=== PATIENT | male | born 1965 | race Caucasian/White ===

== ENCOUNTER 2021-04-26 14:02 | Observation (INO) | payer BC ==
[2021-04-26] MEDS ORDERED: NITROGLYCERIN OINT 1 INCH/GM PACKET TOPICAL STA (15:08)
[2021-04-26] MEDS ORDERED: ASPIRIN 81 MG PO STA (15:08)
--- NOTE | 2021-04-26 15:11 | ED ---
General Adult HPI - General Chief complaint: Chest Pain Stated complaint: Chest Pain Time Seen by Provider: 04/26/21 14:48 Source: patient, RN notes reviewed Mode of arrival: wheelchair Limitations: no limitations - History of Present Illness Initial comments: Patient is a pleasant 55-year-old male presenting to the emergency Department with complaints of chest discomfort. Patient had an episode a week ago that resolved. Patient had some symptoms yesterday that improved at nighttime and return again this morning. Symptoms have been steady today. Discomfort feels like tightness and is rated 5/10. No radiation. No associated dyspnea, nausea, or diaphoresis. No history of similar symptoms prior to last week. Symptoms are not necessarily exertional. No worsening symptoms with position changes or deep breaths. - Related Data Home Medications Medication Instructions Recorded Confirmed Aspirin EC [Ecotrin] 325 mg PO ONCE PRN 04/26/21 04/26/21 Cetirizine HCl [Zyrtec] 10 mg PO DAILY 04/26/21 04/26/21 Omeprazole 20 mg PO DAILY 04/26/21 04/26/21 amLODIPine [Norvasc] 5 mg PO DAILY 04/26/21 04/26/21 Allergies Allergy/AdvReac Type Severity Reaction Status Date / Time No Known Allergies Allergy Verified 04/26/21 16:02 Review of Systems ROS Statement: Those systems with pertinent positive or pertinent negative responses have been documented in the HPI. ROS Other: All systems not noted in ROS Statement are negative. Constitutional: Denies: fever Eyes: Denies: eye pain ENT: Denies: ear pain Respiratory: Denies: cough, dyspnea Cardiovascular: Reports: as per HPI, chest pain Endocrine: Denies: fatigue Gastrointestinal: Denies: abdominal pain Genitourinary: Denies: dysuria Musculoskeletal: Denies: back pain Skin: Denies: rash Neurological: Denies: weakness Past Medical History Past Medical History: Hyperlipidemia, Hypertension Additional Past Medical History / Comment(s): covid 03/01 History of Any Multi-Drug Resistant Organisms: None Reported Past Surgical History: Hernia Repair Past Psychological History: No Psychological Hx Reported Smoking Status: Never smoker Past Alcohol Use History: Occasional Past Drug Use History: Marijuana General Exam Limitations: no limitations General appearance: alert, in no apparent distress Head exam: Present: normocephalic Eye exam: Present: normal appearance Neck exam: Present: normal inspection Respiratory exam: Present: normal lung sounds bilaterally. Absent: chest wall tenderness Cardiovascular Exam: Present: regular rate, normal rhythm Expanded Peripheral pulses: 2+: Radial (R), Radial (L), Posterior Tibialis (R), Posterior Tibialis (L) GI/Abdominal exam: Present: soft. Absent: tenderness Extremities exam: Present: normal inspection. Absent: pedal edema, calf tenderness Neurological exam: Present: alert Psychiatric exam: Present: normal affect, normal mood Skin exam: Present: normal color Course Vital Signs 04/26/21 04/26/21 14:06 14:56 Temperature 97.9 F Pulse Rate 94 Respiratory 20 16 Rate Blood Pressure 190/107 O2 Sat by Pulse 98 Oximetry EKG Findings - EKG Comments: EKG Findings:: No sinus rhythm with a rate of 81. MT 154. QRS 76. QT 368. QT C 427. Normal axis. Normal QRS. No acute ST change. Medical Decision Making - Medical Decision Making Patient reevaluated. Patient and family updated. Dr. Meehan has been paged for admission, covering for hospital call. Repeat chest x-ray will also be ordered tomorrow. Ultrasound gallbladder will be ordered. - Lab Data Result diagrams: 04/26/21 15:06 04/26/21 15:06 Lab Results 04/26/21 04/26/21 04/26/21 Range/Units 15:06 15:06 15:06 WBC 4.1 (3.8-10.6) k/uL RBC 5.02 (4.30-5.90) m/uL Hgb 17.1 (13.0-17.5) gm/dL Hct 48.0 (39.0-53.0) % MCV 95.6 (80.0-100.0) fL MCH 34.0 (25.0-35.0) pg MCHC 35.6 (31.0-37.0) g/dL RDW 12.6 (11.5-15.5) % Plt Count 189 (150-450) k/uL MPV 8.3 Neutrophils % 51 % Lymphocytes % 34 % Monocytes % 8 % Eosinophils % 3 % Basophils % 2 % Neutrophils # 2.1 (1.3-7.7) k/uL Lymphocytes # 1.4 (1.0-4.8) k/uL Monocytes # 0.3 (0-1.0) k/uL Eosinophils # 0.1 (0-0.7) k/uL Basophils # 0.1 (0-0.2) k/uL PT 11.8 (9.0-12.0) sec INR 1.1 (<1.2) APTT 44.3 H (22.0-30.0) sec D-Dimer 0.43 (<0.60) mg/L FEU Sodium 138 (137-145) mmol/L Potassium 4.4 (3.5-5.1) mmol/L Chloride 97 L (98-107) mmol/L Carbon Dioxide 29 (22-30) mmol/L Anion Gap 12 mmol/L BUN 12 (9-20) mg/dL Creatinine 0.83 (0.66-1.25) mg/dL Est GFR (CKD-EPI)AfAm >90 (>60 ml/min/1.73 sqM) Est GFR (CKD-EPI)NonAf >90 (>60 ml/min/1.73 sqM) Glucose 93 (74-99) mg/dL Calcium 10.0 (8.4-10.2) mg/dL Magnesium 1.7 (1.6-2.3) mg/dL Total Bilirubin 1.4 H (0.2-1.3) mg/dL AST 66 H (17-59) U/L ALT 72 H (4-49) U/L Alkaline Phosphatase 79 (38-126) U/L Troponin I (0.000-0.034) ng/mL Total Protein 8.5 H (6.3-8.2) g/dL Albumin 5.0 (3.5-5.0) g/dL 04/26/21 Range/Units 15:06 WBC (3.8-10.6) k/uL RBC (4.30-5.90) m/uL Hgb (13.0-17.5) gm/dL Hct (39.0-53.0) % MCV (80.0-100.0) fL MCH (25.0-35.0) pg MCHC (31.0-37.0) g/dL RDW (11.5-15.5) % Plt Count (150-450) k/uL MPV Neutrophils % % Lymphocytes % % Monocytes % % Eosinophils % % Basophils % % Neutrophils # (1.3-7.7) k/uL Lymphocytes # (1.0-4.8) k/uL Monocytes # (0-1.0) k/uL Eosinophils # (0-0.7) k/uL Basophils # (0-0.2) k/uL PT (9.0-12.0) sec INR (<1.2) APTT (22.0-30.0) sec D-Dimer (<0.60) mg/L FEU Sodium (137-145) mmol/L Potassium (3.5-5.1) mmol/L Chloride (98-107) mmol/L Carbon Dioxide (22-30) mmol/L Anion Gap mmol/L BUN (9-20) mg/dL Creatinine (0.66-1.25) mg/dL Est GFR (CKD-EPI)AfAm (>60 ml/min/1.73 sqM) Est GFR (CKD-EPI)NonAf (>60 ml/min/1.73 sqM) Glucose (74-99) mg/dL Calcium (8.4-10.2) mg/dL Magnesium (1.6-2.3) mg/dL Total Bilirubin (0.2-1.3) mg/dL AST (17-59) U/L ALT (4-49) U/L Alkaline Phosphatase (38-126) U/L Troponin I <0.012 (0.000-0.034) ng/mL Total Protein (6.3-8.2) g/dL Albumin (3.5-5.0) g/dL - Radiology Data Radiology results: image reviewed (Chest x-ray shows possible lower lobe densities on lateral view.) Disposition Clinical Impression: Chest pain Disposition: ADMITTED IP TO THIS [facility] Is patient prescribed a controlled substance at d/c from ED?: No Referrals: Parrish Mcneill DO [Primary Care Provider] - 1-2 days Decision Time: 16:13
[2021-04-26 15:21] LABS: Basophils # (A) 0.1 k/uL (0-0.2); Basophils % (A) 2 %; Eosinophils # (A) 0.1 k/uL (0-0.7); Eosinophils % (A) 3 %; HGB 17.1 gm/dL (13.0-17.5); Lymphocytes # (A) 1.4 k/uL (1.0-4.8); Lymphocytes % (A) 34 %; MCHC 35.6 g/dL (31.0-37.0); MCV 95.6 fL (80.0-100.0); Mean Platelet Volume 8.3; Monocytes # (A) 0.3 k/uL (0-1.0); Monocytes % (A) 8 %; Neutrophils # (A) 2.1 k/uL (1.3-7.7); Neutrophils % (A) 51 %; Platelet Count 189 k/uL (150-450); RBC 5.02 m/uL (4.30-5.90); RDW 12.6 % (11.5-15.5); WBC 4.1 k/uL (3.8-10.6)
--- NOTE | 2021-04-26 15:26 | XR ---
EXAMINATION TYPE: XR chest 2V DATE OF EXAM: 04/26/2021 COMPARISON: NONE HISTORY: Chest pain TECHNIQUE: Frontal and lateral views of the chest are obtained. FINDINGS: There are vague nodular densities seen in the lateral view posteriorly measuring up to 1.[address] can be performed for further evaluation if clinically warranted. Cardiac silhouette is not enlarged. IMPRESSION: Vague possible nodular densities in the posterior lungs on lateral view only may be further evaluated with CT chest if clinically warranted.
[2021-04-26 15:30] LABS: ALT 72 U/L (4-49); AST 66 U/L (17-59); African American GFR (CKD) >90 (>60 ml/min/1.73 sqM); Alkaline Phosphatase 79 U/L (38-126); Anion Gap 12 mmol/L; Blood Urea Nitrogen 12 mg/dL (9-20); Carbon Dioxide 29 mmol/L (22-30); Chloride 97 mmol/L (98-107); Glucose 93 mg/dL (74-99); Magnesium 1.7 mg/dL (1.6-2.3); Non-African American GFR(CKD) >90 (>60 ml/min/1.73 sqM); Potassium 4.4 mmol/L (3.5-5.1); Sodium 138 mmol/L (137-145); Total Bilirubin 1.4 mg/dL (0.2-1.3); Total Protein 8.5 g/dL (6.3-8.2)
[2021-04-26 15:46] LABS: D-Dimer 0.43 mg/L FEU (<0.60); INR 1.1 (<1.2); Partial Thromboplastin Time 44.3 sec (22.0-30.0); Prothrombin Time 11.8 sec (9.0-12.0)
[2021-04-26] MEDS ORDERED: NITROGLYCERIN SL TABS 0.4 MG TAB SUBLINGUAL PRN (16:14)
[2021-04-26] MEDS: NITROGLYCERIN OINT 1 INCH/GM PACKET TOPICAL SCH ×2 (16:48→19:32)
--- NOTE | 2021-04-26 16:57 | US ---
EXAMINATION TYPE: US gallbladder DATE OF EXAM: 04/26/2021 COMPARISON: NONE CLINICAL HISTORY: pain. Pain right upper quadrant. EXAM MEASUREMENTS: Liver Length: 12.8 cm Gallbladder Wall: .2 cm CBD: .4 cm Right Kidney: 10.1 x 5.3 x 4.2 cm Pancreas: Obscured by bowel gas Liver: Increased attenuation Gallbladder: No stones seen Evidence for sonographic Gómez's sign: No CBD: wnl Right Kidney: No hydronephrosis or masses seen Visualized portion of pancreas is slightly heterogeneous. Portions obscured by overlying bowel gas an d body habitus. Visualized portion of liver heterogeneously hyperechoic. Evaluation for focal masses suboptimal due to the heterogeneity. No ductal dilatation or surrounding ascites. Finding could be pr oduct of diffuse fatty infiltration and/or underlying hepatocellular disease. Gallbladder identified without shadowing mobile gallstones. Limited images of right kidney show no gross hydronephrosis. IMPRESSION: Suboptimal study but no shadowing mobile gallstones or ultrasound evidence for acute chol ecystitis.
--- NOTE | 2021-04-26 21:43 | P.HPIM ---
History of Present Illness H&P Date: 04/26/21 Chief Complaint: Chest Pain Patient is a 55-year-old male with a known history of hypertension, hyperlipidemia, COVID-19 infection in February 2021 between his 2 Covid vaccine do ses and occasional marijuana use, reflux symptoms presents to ER with complaints of chest discomfort. Patient states that he had left lateral lower chest pain about a week ago which was resolved by itself. Yesterday whole day he did have dull aching chest pressure and resolved by evening. Since last midnight patient has been having symptoms again which is constant aching pain. No associated na usea vomiting. No radiation of the pain. Sometimes worsens with deep breathing. No fever no chills. No cough or sputum production. Patient was tested positive for COVID-19 infection in February 2021 which resolved without any complications. No nausea vomiting or abdominal pain or diarrhea. No prior history of cardiac disease. Patient does smoke marijuana occasionally. Denies any exertional dyspnea. Patient was able to play golf over the weekend. Laboratory data showed WBC 4.1 Laboratory data showed WBC 4.1, hemoglobin 17.1 and platelets 189 D-dimer level is 0.43 Sodium 138 potassium 4.4 chloride 97 BUN 12 and creatinine 0.83 bilirubin level is 1.4, AST 66 ALT 72 and alk phos 79 Troponin x2 - COVID-19 PCR not detected Ultrasound gallbladder showed a suboptimal study but no shadowing mobile gallstones are ultrasound evidence of acute cholecystitis. EKG showed normal sinus rhythm Chest x-ray showed vague possible nodular densities in the posterior lungs on the lateral view only may be further evaluated with CT chest if clinically warranted. Review of Systems Constitutional: Patient denies any fever or chills . No generalized weakness or weight loss. Abdomen: Patient denied nausea vomiting and diarrhea and abdominal pain. Cardiovascular: Patient denies any chest pain or short of breath no palpitations. Respiratory: patient denied any cough or sputum production. No shortness of breath Neurologic: Patient denied any numbness or tingling headache. Musculoskeletal: Patient denies any complaints of joint swelling or deformity. Skin: Negative Psychiatric: Negative Endocrine: No heat or cold intolerance. No recent weight gain. Genitourinary: No dysuria or hematuria. All other 14 point ROS negative except the above Past Medical History Past Medical History: Hyperlipidemia, Hypertension Additional Past Medical History / Comment(s): covid 03/01 History of Any Multi-Drug Resistant Organisms: None Reported Past Surgical History: Hernia Repair Past Psychological History: No Psychological Hx Reported Smoking Status: Never smoker Past Alcohol Use History: Occasional Past Drug Use History: Marijuana Medications and Allergies Home Medications Medication Instructions Recorded Confirmed Type Aspirin EC [Ecotrin] 325 mg PO ONCE PRN 04/26/21 04/26/21 History Cetirizine HCl [Zyrtec] 10 mg PO DAILY 04/26/21 04/26/21 History Omeprazole 20 mg PO DAILY 04/26/21 04/26/21 History amLODIPine [Norvasc] 5 mg PO DAILY 04/26/21 04/26/21 History Allergies Allergy/AdvReac Type Severity Reaction Status Date / Time No Known Allergies Allergy Verified 04/26/21 16:02 Physical Exam Vitals: Vital Signs Temp Pulse Resp BP Pulse Ox 04/26/21 19:31 98.6 F 79 18 121/80 98 04/26/21 18:06 98.5 F 78 18 138/96 99 04/26/21 17:00 13 146/98 97 04/26/21 16:30 71 15 97 04/26/21 16:00 71 15 97 04/26/21 15:30 78 11 L 98 04/26/21 15:00 74 12 97 04/26/21 14:56 16 04/26/21 14:54 76 15 98 04/26/21 14:06 97.9 F 94 20 190/107 98 Intake and Output 04/26/21 04/26/21 04/26/21 06:59 14:59 22:59 Other: Weight 85.275 kg PHYSICAL EXAMINATION: Patient is lying in the bed comfortably, no acute distress, awake alert and oriented.. HEENT: Normocephalic. Neck is supple. Pupils reactive. Nostrils clear. Oral cavity is moist. Neck reveals no JVD, carotid bruits, or thyromegaly. CHEST EXAMINATION: Trachea is central. Symmetrical expansion. Lung morfin clear to auscultation and percussion. CARDIAC: Normal S1, S2 with no gallops. No murmurs ABDOMEN: Soft. Bowel sounds normal. No organomegaly. No abdominal bruits. Extremities: reveal no edema. No clubbing or cyanosis Neurologically awake, alert, oriented x3 with well-coordinated movements. No focal deficits noted Skin: No rash or skin lesions. Psychiatric: Coperative. Nonsuicidal Musculoskeletal: No joint swelling or deformity. Normal range of motion. Results CBC & Chem 7: 04/26/21 15:06 04/26/21 15:06 Labs: Abnormal Lab Results - Last 24 Hours (Table) 04/26/21 04/26/21 Range/Units 15:06 15:06 APTT 44.3 H (22.0-30.0) sec Chloride 97 L (98-107) mmol/L Total Bilirubin 1.4 H (0.2-1.3) mg/dL AST 66 H (17-59) U/L ALT 72 H (4-49) U/L Total Protein 8.5 H (6.3-8.2) g/dL Thrombosis Risk Factor Assmnt - DVT/VTE Prophylaxis DVT/VTE Prophylaxis: Pharmacologic Prophylaxis ordered Assessment and Plan Assessment: Atypical chest pain. Rule out ACS. Pleuritic chest pain Mild transaminitis Recent history of COVID-19 infection Vague nodular densities in the posterior lung morfin. Outpatient pulmonary follow-up recommended. Hypertension Hyperlipidemia Occasional marijuana use DVT prophylaxis with early ambulation. Plan: Patient will be continued on telemetry monitoring. Serial EKG and troponin x3. Due to elevated liver enzymes ultrasound of the right upper quadrant abdominal was ordered. Follow-up hepatitis panel. Cardiology was consulted. Continue with home medications and follow-up closely. Time with Patient: Greater than 30
[2021-04-27] MEDS: NITROGLYCERIN OINT 1 INCH/GM PACKET TOPICAL SCH ×2 (00:06→05:46)
[2021-04-27] MEDS ORDERED: PANTOPRAZOLE 40 MG TABLET PO SCH (07:30)
[2021-04-27 08:09] VITALS: BP 125/79; PULSE 63; RESP 17; TEMP 98
[2021-04-27] MEDS ORDERED: ASPIRIN 81 MG PO SCH (09:00)
[2021-04-27] MEDS ORDERED: ASPIRIN 325 MG TAB PO SCH (09:00)
[2021-04-27] MEDS ORDERED: amLODIPine 5 MG TAB PO SCH (09:00)
--- NOTE | 2021-04-27 09:36 | P.CRDCN ---
History of Present Illness Consult date: 04/27/21 History of present illness: HISTORY OF PRESENT ILLNESS: This is a 55-year-old male with a past medical history significant for hypertension, marijuana use, and COVID-19 in February 2021. 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 We have been asked to see the patient in consultation for chest pain. Patient examined at the bedside. Patient states about 2 weeks ago he was doing some housework when he began having some pressure in the middle of his chest. Patient states he thought it might have been heartburn and took some antacids and the pain went away in about 45 minutes. He states he did not think much of it and then on Saturday he was barbecuing and began having chest pressure again. He states the pain persisted throughout the day. He states it eased up in the evening and then came back at night and woke him up out of a sleep. He denies any nausea or vomiting. He denies shortness of breath. He does report his chest feels tight with deep inspiration. There is no pain with chest wall palpation. Patient denies family history of coronary artery disease. EKG reveals sinus mechanism with no signs of acute ischemia Chest xray vague possible nodular densities in the posterior lungs on lateral view only. Laboratory data: WBC 4.1. Hemoglobin 17.1. Platelet count 189. D-dimer 0.43. Sodium 138. Potassium 4.4. BUN 12. Creatinine 0.83. Magnesium 1.7. Bilirubin 1.4. AST 66. ALT 72. Troponin negative 3. Current home cardiac medications include amlodipine 5 mg daily REVIEW OF SYSTEMS: At the time of my exam: CONSTITUTIONAL: Denies fever or chills. HEENT: Denies blurred vision, vision changes, or eye pain. Denies hemoptysis CARDIOVASCULAR: Denies chest pain. Denies orthopnea. Denies PND. Denies palpitations RESPIRATORY: Denies shortness of breath. GASTROINTESTINAL: Denies abdominal pain. Denies nausea or vomiting. HEMATOLOGIC: Denies bleeding disorders. GENITOURINARY: Denies any blood in urine. SKIN: Denies pruitis. Denies rash. PHYSICAL EXAM: VITAL SIGNS: Reviewed. GENERAL: Well-developed in no acute distress. HEENT: Head is normocephalic. Pupils are equal, round. Sclerae anicteric. Mucous membranes of the mouth are moist. Neck supple. No JVD or thyromegaly LUNGS: Respirations even and unlabored. Lungs essentially clear to auscultation bilaterally. HEART: Regular rate and rhythm. S1 and S2 heard. ABDOMEN: Soft. Nondistended. Nontender. EXTREMITIES: Normal range of motion. No clubbing or cyanosis. Peripheral pulses intact. No lower extremity edema NEUROLOGIC: Awake and alert. Oriented x 3. ASSESSMENT: Chest pain, troponins negative 3 Hypertension Marijuana use History of COVID-February 2021 PLAN: An acute coronary and has been ruled out Resume home cardiac medications Obtain 2-D echo to assess cardiac structure and function Patient will undergo stress echocardiogram today to assess for reversible ischemia. If negative, patient may be discharged home from a cardiac standpoint Nurse practitioner note has been reviewed by physician. Signing provider agrees with the documented findings, assessment, and plan of care. Past Medical History Past Medical History: Hyperlipidemia, Hypertension Additional Past Medical History / Comment(s): covid 03/01 History of Any Multi-Drug Resistant Organisms: None Reported Past Surgical History: Hernia Repair Past Psychological History: No Psychological Hx Reported Smoking Status: Current some day smoker Past Alcohol Use History: Occasional Past Drug Use History: Marijuana Medications and Allergies Home Medications Medication Instructions Recorded Confirmed Type Aspirin EC [Ecotrin] 325 mg PO ONCE PRN 04/26/21 04/26/21 History Cetirizine HCl [Zyrtec] 10 mg PO DAILY 04/26/21 04/26/21 History Omeprazole 20 mg PO DAILY 04/26/21 04/26/21 History amLODIPine [Norvasc] 5 mg PO DAILY 04/26/21 04/26/21 History Allergies Allergy/AdvReac Type Severity Reaction Status Date / Time No Known Allergies Allergy Verified 04/26/21 16:02 Physical Exam Vitals: Vital Signs Temp Pulse Pulse Resp BP BP Pulse Ox 04/27/21 07:00 98.0 F 63 17 125/79 96 04/27/21 01:45 98.3 F 77 18 110/74 98 04/26/21 21:58 98.4 F 68 16 124/74 95 04/26/21 19:31 98.6 F 79 18 121/80 98 04/26/21 18:06 98.5 F 78 18 138/96 99 04/26/21 17:00 13 146/98 97 04/26/21 16:30 71 15 97 04/26/21 16:00 71 15 97 04/26/21 15:30 78 11 L 98 04/26/21 15:00 74 12 97 04/26/21 14:56 16 04/26/21 14:54 76 15 98 04/26/21 14:06 97.9 F 94 20 190/107 98 Intake and Output 04/26/21 04/27/21 04/27/21 22:59 06:59 14:59 Other: Voiding Method Toilet # Voids 1 1 Weight 85.275 kg Results 04/26/21 15:06 04/26/21 15:06 Cardiac Enzymes 04/26/21 04/26/21 04/26/21 Range/Units 15:06 15:06 19:05 AST 66 H (17-59) U/L Troponin I <0.012 <0.012 (0.000-0.034) ng/mL 04/26/21 Range/Units 22:19 AST (17-59) U/L Troponin I <0.012 (0.000-0.034) ng/mL Coagulation 04/26/21 Range/Units 15:06 PT 11.8 (9.0-12.0) sec APTT 44.3 H (22.0-30.0) sec CBC 04/26/21 Range/Units 15:06 WBC 4.1 (3.8-10.6) k/uL RBC 5.02 (4.30-5.90) m/uL Hgb 17.1 (13.0-17.5) gm/dL Hct 48.0 (39.0-53.0) % Plt Count 189 (150-450) k/uL Comprehensive Metabolic Panel 04/26/21 Range/Units 15:06 Sodium 138 (137-145) mmol/L Potassium 4.4 (3.5-5.1) mmol/L Chloride 97 L (98-107) mmol/L Carbon Dioxide 29 (22-30) mmol/L BUN 12 (9-20) mg/dL Creatinine 0.83 (0.66-1.25) mg/dL Glucose 93 (74-99) mg/dL Calcium 10.0 (8.4-10.2) mg/dL AST 66 H (17-59) U/L ALT 72 H (4-49) U/L Alkaline Phosphatase 79 (38-126) U/L Total Protein 8.5 H (6.3-8.2) g/dL Albumin 5.0 (3.5-5.0) g/dL Current Medications Generic Name Dose Route Start Last Admin Trade Name Freq PRN Reason Stop Dose Admin Amlodipine Besylate 5 mg 04/27/21 09:00 Amlodipine 5 Mg Tab PO DAILY [facility] Aspirin 81 mg 04/27/21 09:00 Aspirin 81 Mg PO DAILY [facility] Nitroglycerin 0.4 mg 04/26/21 16:14 Nitroglycerin Sl Tabs 0.4 Mg Tab SUBLINGUAL Q5M PRN Chest Pain Pantoprazole Sodium 40 mg 04/27/21 07:30 Pantoprazole 40 Mg Tablet PO AC-BRKFST [facility] Sodium Chloride 10 ml 04/26/21 21:00 04/26/21 22:23 Sodium Chloride 0.9% Flush 10 Ml Syringe IV 10 ml BID [facility] Administration Intake and Output 04/26/21 04/27/21 04/27/21 22:59 06:59 14:59 Other: Voiding Method Toilet # Voids 1 1 Weight 85.275 kg 04/26/21 15:06 04/26/21 15:06
--- NOTE | 2021-04-27 09:37 | XR ---
EXAMINATION TYPE: XR chest 2V DATE OF EXAM: 04/27/2021 COMPARISON: 04/26/2021 HISTORY: Chest pain TECHNIQUE: Frontal and lateral views of the chest are obtained. FINDINGS: There is no focal air space opacity, pleural effusion, or pneumothorax seen. The cardiac silhouette size is within normal limits. The osseous structures are intact. IMPRESSION: No acute cardiopulmonary process.
[2021-04-27 10:46] LABS: Chol/HDL Ratio 3.12; LDL Cholesterol,Calculated 150.6 mg/dL (0.0-131.0); VLDL Calculation 21.4 mg/dL (5.00-40.00)
[2021-04-27 11:26] LABS: Hepatitis A Antibody IgM Non-Reactive (Non-Reactive); Hepatitis B Core IgM Non-Reactive (Non-Reactive); Hepatitis B Surface Antigen Non-Reactive (Non-Reactive); Hepatitis C IgG Antibody Non-Reactive (Non-Reactive)
--- NOTE | 2021-04-27 12:46 | ECHOF ---
Referral Reason:cp MEASUREMENTS -------- HEIGHT: 172.7 cm WEIGHT: 85.3 kg BP: 159/65 RVIDd: 3.5 cm (< 3.3) IVSd: 1.3 cm (0.6 - 1.1) LVIDd: 3.0 cm (3.9 - 5.3) LVPWd: 1.2 cm (0.6 - 1.1) IVSs: 1.7 cm LVIDs: 1.8 cm LVPWs: 1.4 cm LAESV Index (A-L): 19.46 ml/m Ao Diam: 2.5 cm (2.0 - 3.7) AV Cusp: 1.8 cm (1.5 - 2.6) MV EXCURSION: 15.856 mm (> 18.000) MV EF SLOPE: 76 mm/s (70 - 150) EPSS: 0.3 cm MV E Gilberto: 0.65 m/s MV DecT: 182 ms MV A Gilberto: 0.74 m/s MV E/A Ratio: 0.88 RAP: 5.00 mmHg RVSP: 27.27 mmHg FINDINGS -------- Sinus rhythm. This was a technically adequate study. The left ventricular size is normal. There is mild concentric left ventricular hypertrophy. Overa ll left ventricular systolic function is normal with, an EF between 55 - 60 %. The diastolic fillin g pattern is normal for the age of the patient 9.57. The right ventricle is mildly enlarged. Normal LA size by volume 22+/-6 ml/m2. The right atrial size is normal. Interatrial and interventricular septum intact. The aortic valve is trileaflet, and appears structurally normal. No aortic stenosis or regurgitation. Normal appearing mitral valve. No mitral regurgitation. The tricuspid valve appears structurally normal. Trace tricuspid regurgitation present. Right amol tricular systolic pressure is normal at < 35 mmHg. The right ventricular systolic pressure, as kylah ured by Doppler, is 27.27mmHg. There is no pulmonic regurgitation present. The aortic root size is normal. IVC Not well visulized. There is no pericardial effusion. CONCLUSIONS -------- 1. There is mild concentric left ventricular hypertrophy. 2. Overall left ventricular systolic function is normal with, an EF between 55 - 60 %. 3. The right ventricle is mildly enlarged. 4. Normal LA size by volume 22+/-6 ml/m2. 5. The aortic valve is trileaflet, and appears structurally normal. No aortic stenosis or regurgitati on. 6. Normal appearing mitral valve. 7. Trace tricuspid regurgitation present. 8. There is no pericardial effusion. ORDER PROCESSING MANAGER: Christine Rangel RDCS
--- NOTE | 2021-04-27 15:40 | ECHOS ---
STRESS ECHOCARDIOGRAM DATE OF SERVICE: 04/27/2021 LUMASON: INDICATIONS: Chest pain MEDICATIONS: BASELINE HEART RATE: 71 BASELINE BLOOD PRESSURE: 139/69 MAXIMUM HEART RATE: 171 MAXIMUM BLOOD PRESSURE: 206/93 85% MPHR: 139 100% MPHR: 163 METS: 10.3 MAXIMUM STAGE REACHED: 3 TOTAL EXERCISE TIME: 9:01 CLINICAL INFORMATION: Baseline rhythm is a sinus mechanism, rate of 71, normal axis and intervals. Normal echocardiogram. Baseline blood pressure 139/69 mmHg. Patient exercised on Cuong protocol for 9 minute 20 seconds reaching peak rate of 171 beats per minute which is equal to 105% maximum predicted heart rate. Peak blood pressure 206/93 mmHg. Test was terminated secondary to fatigue. There was no chest pain. Electrocardiograph monitoring revealed no evidence of diagnostic ischemic ST deviation. Baseline echocardiogram revealed normal wall thickening and motion. At peak exercise, there was normal wall motion augmentation with no hypokinesis or dyskinesis. CONCLUSION: 1. Good exercise tolerance with normal electrocardiograph response to exercise. 2. Normal stress echocardiogram with no evidence of stress-induced ischemia. MMODL / IJN: [id number] /
[2021-04-27] MEDS ORDERED: ATORVASTATIN 40 MG TAB PO SCH (21:00)
--- NOTE | 2021-04-28 09:37 | P.DS ---
Providers Date of admission: 04/26/21 16:14 Expected date of discharge: 04/27/21 Attending physician: Ari Meehan Consults: 04/26/21 16:14 Consult Physician Urgent Consulting Provider: Jmail Galindo Consult Reason/Comments: cp Do you want consulting provider notified?: Yes Primary care physician: Parrish Mcneill DO Hospital Course: Final diagnosis Atypical chest pain. Ruled out ACS. Pleuritic chest pain Mild transaminitis Recent history of COVID-19 infection Vague nodular densities in the posterior lung morfin. Outpatient pulmonary follow-up recommended. Hypertension Hyperlipidemia Occasional marijuana use DVT prophylaxis Discharge disposition Patient is being discharged in a stable condition with guarded prognosis to home. Patient will follow-up with Dr. Parrish Mcneill in the outpatient setting upon discharge. Patient is to also follow up with pulmonary Dr. Liao in 1-2 weeks. Scripts are provided for repeat labs as well to monitor liver functions closely. Total time taken is greater than 35 minutes. Hospital course Patient is a 55-year-old male with a known history of hypertension, hyperlipidemia, COVID-19 infection in February 2021 between his 2 Covid vaccine doses and occasional marijuana use, reflux symptoms presents to ER with complaints of chest discomfort. Patient states that he had left lateral lower chest pain about a week ago which was resolved by itself. Yesterday whole day he did have dull aching chest pressure and resolved by evening. Since last midnight patient has been having symptoms again which is constant aching pain. No associated nausea vomiting. No radiation of the pain. Sometimes worsens with deep breathing. No fever no chills. No cough or sputum production. Patient was tested positive for COVID-19 infection in February 2021 which resolved without any complications. No nausea vomiting or abdominal pain or diarrhea. No prior history of cardiac disease. Patient does smoke marijuana occasionally. Denies any exertional dyspnea. Patient was able to play golf over the weekend. Laboratory data showed WBC 4.1 Laboratory data showed WBC 4.1, hemoglobin 17.1 and platelets 189 D-dimer level is 0.43 Sodium 138 potassium 4.4 chloride 97 BUN 12 and creatinine 0.83 bilirubin level is 1.4, AST 66 ALT 72 and alk phos 79 Troponin x2 - COVID-19 PCR not detected Ultrasound gallbladder showed a suboptimal study but no shadowing mobile gallstones are ultrasound evidence of acute cholecystitis. EKG showed normal sinus rhythm Chest x-ray showed vague possible nodular densities in the posterior lungs on the lateral view only may be further evaluated with CT chest if clinically warranted. 04/27/2021 Patient is seen in follow-up underwent cardiac stress test which was negative and will follow-up outpatient as needed with cardiology. Patient was started on cholesterol medication along with a baby aspirin will continue. Patient also instructed to follow-up outpatient with pulmonary Dr. Liao as there were some possible nodular densities noted on chest x-ray at radiology recommends outpatient CAT scan. Currently patient denies any chest pain, shortness of breath, or palpitations. Patient is afebrile. No reports of nausea or vomiting and patient is tolerating diet. Patient will be discharged home today. On exam vital signs are stable. Cardio S1, S2 are muffled. Respiratory system shows diminished breath sounds at the bases with no wheezing or rhonchi noted. Abdomen is soft and nontender. Nervous system shows no focal deficits. Please refer to medication reconciliation sheet for a list of medications. Patient Condition at Discharge: Stable Plan - Discharge Summary New Discharge Prescriptions: New Aspirin 81 mg PO DAILY 30 Days #30 chew Atorvastatin [Lipitor] 40 mg PO HS 30 Days #30 tab Continue amLODIPine [Norvasc] 5 mg PO DAILY Cetirizine HCl [Zyrtec] 10 mg PO DAILY Omeprazole 20 mg PO DAILY Discontinued Aspirin EC [Ecotrin] 325 mg PO ONCE PRN PRN Reason: Chest Pain Discharge Medication List Cetirizine HCl [Zyrtec] 10 mg PO DAILY 04/26/21 [History] Omeprazole 20 mg PO DAILY 04/26/21 [History] amLODIPine [Norvasc] 5 mg PO DAILY 04/26/21 [History] Aspirin 81 mg PO DAILY 30 Days #30 chew 04/27/21 [Rx] Atorvastatin [Lipitor] 40 mg PO HS 30 Days #30 tab 04/27/21 [Rx] Follow up Appointment(s)/Referral(s): Jamil Galindo MD [STAFF PHYSICIAN] - As Needed Parrish Mcneill DO [Primary Care Provider] - 1-2 days (Patient will call for appointment.) Adi Liao MD [STAFF PHYSICIAN] - 05/18/21 2:45 pm Ambulatory/Diagnostic Orders: ALT [LAB.AMB] Time Frame: 1 Week, Location: None Selected Patient Instructions/Handouts: Coronary Artery Disease (DC) Activity/Diet/Wound Care/Special Instructions: Activity Limited until follow-up Follow-up with primary care provider upon discharge Continue with heart healthy diet Continue with medications as prescribed Repeat labs in one week to monitor ALT/AST Follow-up with pulmonary outpatient regarding some possible nodular densities noted on the chest x-ray on admission and may require outpatient CAT scan. Appointment has been made, see instructions. Please arrive 20 minutes prior to appointment. Bring insurance cards and patient must wear a mask. Follow-up cardiology as needed Discharge Disposition: HOME SELF-CARE
== END 2021-04-27 14:40 | disposition home or self-care (01) ==
LOC: EC 14:02 → 6NMEDSUR 16:14
PROVIDERS: ADMIT Hospitalist; ATTEND Hospitalist
DX: R07.89 Other chest pain (principal); R07.81 Pleurodynia; R74.01 Elevation of levels of liver transaminase levels; Z86.16 Personal history of COVID-19; R91.8 Other nonspecific abnormal finding of lung field; E78.5 Hyperlipidemia, unspecified; I10 Essential (primary) hypertension; K21.9 Gastro-esophageal reflux disease without esophagitis; F12.90 Cannabis use, unspecified, uncomplicated; F17.200 Nicotine dependence, unspecified, uncomplicated; Z20.822 Contact with and (suspected) exposure to COVID-19; Z79.899 Other long term (current) drug therapy
CPT/HCPCS: 93005 ×2; 99285; 36415; 93306; 93351; 85379; 80061; 80053; 80074; 83735; 84484; 85025; 85610; 85730; 87635; 71046 ×2; 76705; G0378 ×2

== ENCOUNTER → 2021-07-05 | Outpatient (CLI) | payer BC ==
--- NOTE | 2021-07-05 21:30 | CT ---
EXAMINATION TYPE: CT chest w con DATE OF EXAM: 07/05/2021 COMPARISON: Radiograph 04/27/2021 HISTORY: 55-year-old male R91.8, abnormal cxr TECHNIQUE: Contiguous axial scanning of the chest after the administration of 100 mL of Isovue 300. Coronal/sagittal reconstructions performed. CT DLP: 363.6mGycm. Automatic exposure control utilized for a dose reduction. FINDINGS: Heart normal size without pericardial effusion. Scattered LAD and RCA coronary artery calcifications are present. Aorta normal caliber with bovine configuration to the aortic arch. No thoracic lymphadenopathy by CT size criteria. Mild central bronchial wall thickening could reflect bronchitis or chronic asthma. Minimal emphysemat ous cysts are present. No consolidation or pleural effusion. Visualized upper abdomen shows no gross abnormality. Bones: Mild degenerative disc disease upper and mid thoracic spine with slightly accentuated midthora cic kyphosis. IMPRESSION: 1. Evidence of COPD with minimal emphysematous change. No acute pulmonary process. 2. LAD and RCA coronary artery calcifications.
== END | disposition home or self-care (01) ==
LOC: RADCTMAIN 14:14
PROVIDERS: ATTEND Internal Medicine Critical Care Medicine
DX: I25.10 Atherosclerotic heart disease of native coronary artery without angina pectoris (principal); J44.9 Chronic obstructive pulmonary disease, unspecified
CPT/HCPCS: 71260; Q9967

== ENCOUNTER → 2024-12-15 | Outpatient (CLI) | payer BC ==
--- NOTE | 2024-12-15 08:17 | US ---
EXAMINATION TYPE: US abdomen complete DATE OF EXAM: 12/15/2024 COMPARISON: US CLINICAL INDICATION: Male, 59 years old with history of R94.5 ELEVATED LIVER ENZYMES; Elevated LFT's TECHNIQUE: Grayscale and color Doppler imaging of the abdomen was performed. FINDINGS: EXAM MEASUREMENTS: Liver Length: 13.9 cm Gallbladder Wall: 0.3 cm CBD: 0.4 cm, color Doppler imaging was utilized to isolate the common bile duct for measurement. Spleen: 11.1 cm Right Kidney: 11.7 x 6.6 x 5.5 cm Left Kidney: 11.9 x 6.5 x 5.6 cm FLOOR CLEANER NOTES: Pancreas: Obscured by bowel gas Liver: wnl, no dilated ducts, masses or cysts. Gallbladder: Slightly contracted, possible polyp= 0.3 cm Evidence for sonographic Gómez's sign: No CBD: wnl Spleen: wnl Right Kidney: wnl, No hydronephrosis, possible echogenic foci scattered throughout kidney, largest= 0.5 cm Left Kidney: wnl, No hydronephrosis, possible echogenic foci mid= 0.6 cm Upper IVC: wnl Abd Aorta: wnl The liver is homogenous. The intrahepatic portion of the IVC and proximal abdominal aorta are within normal limits. There is no evidence of cholelithiasis. Common bile duct is unremarkable. The visu alized portions of the pancreas are homogenous. The spleen is unremarkable. Kidneys are symmetric a nd free of hydronephrosis. No renal lesions are seen. IMPRESSION: 1. No evidence for acute process. 2. Gallbladder polyp vs. Gallstone and 3 mm 3. Bilateral echogenic foci in renal sinus possibly representing nonobstructing renal calculi. [facility], , 12/15/2024 8:15 AM
== END | disposition home or self-care (01) ==
LOC: RADUSWWP 07:40
PROVIDERS: ATTEND Family Medicine
DX: R94.5 Abnormal results of liver function studies (principal)
CPT/HCPCS: 76700